=== PATIENT | female | born 1960 | race Caucasian/White ===

== ENCOUNTER → 2016-07-01 | Day surgery (SDC) | payer OTHER ==
[~2016-07-01] MED LIST: ACETAMINOPHEN 1000 MG/100 ML VIAL IV ONE; ACETAMINOPHEN/HYDROcodone 325 MG/5 MG TAB ONE; BACITRACIN IM FOR SOLN 50,000 UNIT VIAL ONE; BUPIVACAINE/EPINEPHRINE 0.25% 50 ML VIAL ONE; GENTAMICIN SULFATE 80 MG/2 ML VIAL ONE; LACTATED RINGER'S 1,000 ML BAG IV ONE; LACTATED RINGER'S 1000 ML INJ 1,000 ML ONE; LIDOCAINE 1%/EPINEPHrine 1:100,000 SOLN 50 ML VIAL ONE; MEPERIDINE HCL 50 MG/ML VIAL ONE; MIDAZOLAM HCL 2 MG/2 ML VIAL ONE; MORPHINE SULFATE 4 MG/ML INJ ONE; ONDANSETRON HCL 4 MG/2 ML VIAL IV PUSH ONE; PROPOFOL 200 MG/20 ML AMP IV ONE; SODIUM CHLORIDE 0.9% 20 ML VIAL ONE; ceFAZolin INJ 1,000 MG VIAL ONE
--- NOTE | 2016-07-01 08:46 | TH ---
cc: PUMA CARRENO M.D. DATE: 07/01/2016 DATE OF : 1960 PROCEDURE PERFORMED: Augmentation mastopexy HISTORY OF PRESENT ILLNESS A pleasant 56-year-old female who is to proceed for cosmetic augmentation mastopexy. She is a healthy individual. PAST MEDICAL HISTORY: None. PAST SURGICAL HISTORY: Liposuction, abdominoplasty. MEDICATIONS: Occasional Aleve. HABITS: Benign. The patient is a rare smoker. However, she has stopped smoking for the last [id number]-half to two. PHYSICAL EXAM CONSTITUTIONAL: General appearance. The patient is a well-developed female in no acute distress. Body habitus is within normal limits. There appear to be no deformities. Appears to have attention to grooming. HEENT: Eyes Conjunctivae and lids are within normal anatomical limits. The pupils are reactive to light and accommodation, size, and symmetry. There is no evidence of exudate, hemorrhage, or vessel change. Ears, mouth, nose, and throat The external inspection of the ears and nose fails to demonstrate any pathology, scars, lesions, or masses. Nasal mucosa, septum, and turbinates appear to be well hydrated as well as the lips and gums. No evidence of masses in the hypopharynx or submental area. RESPIRATORY: The patient shows no evidence of intercostal refractions. Otherwise, lungs are clear to auscultation without any abnormal sounds or rubs. CARDIOVASCULAR: The patient has a normal heart rate and rhythm. There is no evidence of noticed carotid bruits. Femoral pulses and pedal pulses in extremities are also within normal limits. GASTROINTESTINAL/ABDOMEN: Soft with no evidence of masses or tenderness. Unable to palpate the liver or spleen. No evidence of hernia. MUSCULOSKELETAL: Appears to be reasonable range of motion on the head, neck, spine, ribs, pelvis, right upper extremity, left upper extremity, right lower extremity, and left lower extremity. The muscle strength and tone appears to be equal and within accepted limits. SKIN: There is no rashes, lesions, or ulcers on the trunk, back, and extremities. NEUROLOGICAL: Examination is grossly normal. PSYCHIATRIC: The patient appears to have good orientation of time, place, and person. Does not appear to have any mood effects of depression, anxiety, or agitation. BREASTS: The breasts have some bilateral ptosis bilaterally. The rest of the examination is unremarkable. ASSESSMENT AND RECOMMENDATION: Augmentation mastopexy. Will plan to do a style 270801 cohesive gels in the subfascial plane. The risks and possible complications discussed. MD JONNIE Rose/DINO /4:04 PM /8:45 AM
--- NOTE | 2016-07-01 12:26 | TN ---
cc: SOLIS BARBOSA M.D. DATE OF SURGERY: 07/01/2016 PREOPERATIVE DIAGNOSIS Wishes breast enhancement and correction of breast ptosis. POSTOPERATIVE DIAGNOSIS Wishes breast enhancement and correction of breast ptosis. PROCEDURE Augmentation mastopexy. SURGEON Solis Barbosa MD ANESTHESIA LMA general. ESTIMATED BLOOD LOSS Minimal. COMPLICATIONS None. DRAINS None. IMPLANT DATA Placement and technique: Subfascial gels Natrelle style 115 volume 401, serial number of the right breast implant device [id number] and to the left breast [id number]. PROCEDURE IN DETAIL She was properly consented, marked as following. The NAC was set about 19-1/2 to 20 cm from the sternal notch, 42 mm areolar diameter. After the area was properly prepped and draped in the usual fashion, through utilizing a infra-areolar vertical incision the subfascial plane was encountered, developed and the pocket created, utilizing electrocautery assured meticulous hemostasis. After the pocket was properly assured, properly created, irrigation with triple antibiotic solution was carried out. The nipple-areolar complex was covered with Tegaderm from the beginning of the procedure and now the skin was covered before the implant was introduced utilizing the no-touch technique. With that the contralateral side was approached exactly in the same manner. The patient was sat up, blunt touch was done to achieve best symmetry possible. The wounds were closed utilizing 2-0 Monocryl suture in the breast parenchyma, dermis and thereafter a tailor tack technique was utilized to reassess the envelope of the breast. Utilizing the surgical chance skin was marked, the chance removed, the skin was de-epithelialized and the closure was done as follows. The inverted T utilizing 2-0 Monocryl suture in the dermis and subcu and the NAC was brought in new anatomical position utilizing 2-0 PTFE on a pinwheel type technique and reinforced with 2-0 Quill. Good viability of tissue was noted at the end of the case. For the skin coverage we utilized Prineo Dermabond as well as absorbent dressings and a snug brassiere. Overall, the patient tolerated the procedure well. She was awakened, extubated in the operating room. She was transferred back to the postanesthesia care unit in stable condition. No complications were appreciated. The patient tolerated the procedure fairly well. MD JONNIE Rose/SONIA /11:27 AM /12:14 PM
== END | disposition home or self-care (01) ==
LOC: ESDC 08:25
PROVIDERS: ATTEND Plastic Surgery
DX: Z41.1 Encounter for cosmetic surgery (principal)
CPT/HCPCS: 00402; 19316; 19325; C1789; J0131; J0690; J1580; J2175; J2250; J2270; J2405; J3010; J7120